=== PATIENT | male | born 1975 | race Caucasian/White ===

== ENCOUNTER 2019-01-27 10:43 | Emergency (ER) | payer BC ==
--- NOTE | 2019-01-27 11:01 | ER Document Report ---
HPI - HPI Time Seen by Provider: 01/27/19 10:53 Pain Level: 5 Context: Patient is a 43-year-old male who presents the emergency department with a chief complaint of left knee pain. He states that his symptoms started 2 days ago. Denies any injury, but states that he might have twisted his knee possibly while he was at work or when he was walking. He states that the pain is mainly in his anterior knee and radiates behind his knee on both sides. 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 He has history of multiple orthopedic problems. He states that his knees have bothered him in the past. He denies any fever, nausea, vomiting, diarrhea, or any other symptoms. - CONSTITUTIONAL Constitutional: DENIES: Fever, Chills - EENT EENT: DENIES: Sore Throat - NEURO Neurology: DENIES: Headache - CARDIOVASCULAR Cardiovascular: DENIES: Chest pain - RESPIRATORY Respiratory: DENIES: Coughing - MUSCULOSKELETAL Musculoskeletal: REPORTS: Extremity pain - Left knee - DERM Skin Color: Normal Skin Problems: None Past Medical History - Social History Smoking Status: Unknown if Ever Smoked Family History: Reviewed & Not Pertinent Vertical Provider Document - CONSTITUTIONAL Exam Limitations: No Limitations - INFECTION CONTROL TRAVEL OUTSIDE OF THE [place] IN LAST 30 DAYS: No - HEENT HEENT: Atraumatic, Normocephalic - NECK Neck: Normal Inspection - RESPIRATORY Respiratory: No Respiratory Distress - CARDIOVASCULAR Cardiovascular: Regular Rate - MUSCULOSKELETAL/EXTREMETIES Musculoskeletal/Extremeties: FROM, Tender - Left knee - NEURO Level of Consciousness: Awake, Alert, Appropriate Motor/Sensory: No Motor Deficit, No Sensory Deficit - DERM Integumentary: Warm, Dry Course - Re-evaluation Re-evalutation: 01/27/19 12:03 Patient's x-ray is negative for any acute fracture. He will be started on naproxen and he will follow-up with orthopedics due to him having chronic knee issues. I do not suspect a septic joint at this time as his knee is not red, hot, and swollen. Verbal discharge instructions were given to the patient. They verbalized understanding. They are stable for discharge. - Vital Signs Vital signs: Temp Pulse Resp BP Pulse Ox 98.9 F 110 H 18 133/77 H 96 01/27/19 10:46 01/27/19 10:46 01/27/19 10:46 01/27/19 10:46 01/27/19 10:46 Discharge - Discharge Clinical Impression: Left knee pain Qualifiers: Chronicity: unspecified Qualified Code(s): M25.562 - Pain in left knee Condition: Stable Disposition: HOME, SELF-CARE Additional Instructions: You were seen in the emergency department for left knee pain. You have been given naproxen for your pain. You may take 1 tablet twice a day as needed. Please follow-up with orthopedics on Tuesday in regards to this visit. You may also take Tylenol 1000 mg every 6 hours as needed for your pain. If you are unable to walk, develop a fever greater than 100.4 F, have worsening symptoms, or have any symptoms that are worrisome to you, please return to the emergency department. Prescriptions: Naproxen 500 mg PO BID PRN #20 tablet PRN Reason: Forms: Return to Work Referrals: LI JACQUES MD [ACTIVE STAFF] - 01/29/19
--- NOTE | 2019-01-27 11:29 | RADIOLOGY REPORT (SQ) ---
EXAM DESCRIPTION: KNEE LEFT 4 VIEW COMPLETED DATE/TIME: 01/27/2019 11:17 am REASON FOR STUDY: knee pain COMPARISON: None. NUMBER OF VIEWS: Four views. TECHNIQUE: AP, lateral, and both oblique radiographic images acquired of the left knee. LIMITATIONS: None. FINDINGS: MINERALIZATION: Normal. BONES: No acute fracture or dislocation. No worrisome bone lesions. JOINT: No effusion. SOFT TISSUES: No soft tissue swelling. No radio-opaque foreign body. OTHER: No other significant finding. IMPRESSION: NEGATIVE STUDY OF THE LEFT KNEE. NO RADIOGRAPHIC EVIDENCE OF ACUTE INJURY. TECHNICAL DOCUMENTATION: JOB ID: [id number] [employer]- All Rights Reserved Reading location - IP/workstation name: [email or web address]
[2019-01-27] MEDS ORDERED: NAPROXEN 250 MG TABLET PO ONE (12:04)
[2019-01-27] MEDS ORDERED: ACETAMINOPHEN 325 MG TABLET PO ONE (12:07)
[2019-01-27 12:16] VITALS: BP 126/84
== END 2019-01-27 12:22 | disposition home or self-care (01) ==
LOC: ER 10:43
DX: M25.562 Pain in left knee (principal)
CPT/HCPCS: 99283

== ENCOUNTER 2020-03-27 17:39 | Emergency (ER) | payer BC ==
[2020-03-27] MEDS ORDERED: NORMAL SALINE 1000 ML 1,000 ML IV ONE (18:29)
--- NOTE | 2020-03-27 18:31 | ER Document Report ---
ED Medical Screen (RME) - General Chief Complaint: High Blood Sugar Stated Complaint: HIGH BLOOD SUGAR Time Seen by Provider: 03/27/20 18:25 Mode of Arrival: Ambulatory Information source: Patient Notes: 44-year-old male presented to ED for complaint of elevated blood sugar. He states he took his blood sugar this evening before dinnertime and was 595. He states he has insulin that he uses at home he took a dose of that when he got to the emergency room his Accu-Chek was 289. He states he does have blurry vision, dry mouth, frequency with urination. He states his sugars have been in the 2 and 300s for a while now. He states he does not have a primary care doctor. TRAVEL OUTSIDE OF THE [place] IN LAST 30 DAYS: No - Related Data Allergies/Adverse Reactions: latex Allergy (Verified 01/27/19 10:45) Past Medical History Renal/ Medical History: Denies: Hx Peritoneal Dialysis Physical Exam - Vital signs Vitals: Temp Pulse Resp BP Pulse Ox 98.7 F 84 18 141/86 H 97 03/27/20 17:41 03/27/20 17:41 03/27/20 17:41 03/27/20 17:41 03/27/20 17:41 Course - Vital Signs Vital signs: Temp Pulse Resp BP Pulse Ox 98.7 F 84 18 141/86 H 97 03/27/20 18:09 03/27/20 17:41 03/27/20 17:41 03/27/20 17:41 03/27/20 17:41 - Laboratory Laboratory results interpreted by me: 03/27/20 18:16 POC Glucose 289 H
[2020-03-27 18:51] LABS: APPEARANCE,URINE CLEAR; BILIRUBIN,URINE NEGATIVE (NEGATIVE); COLOR,URINE STRAW; GLUCOSE, URINE >=500 mg/dL (NEGATIVE); KETONES,URINE NEGATIVE (NEGATIVE); LEUKOCYTE ESTERASE,URINE NEGATIVE (NEGATIVE); NITRITE,URINE NEGATIVE (NEGATIVE); PROTEIN,URINE NEGATIVE (NEGATIVE); URINE SPECIFIC GRAVITY 1.035; UROBILINOGEN,URINE NEGATIVE mg/dL (<2.0)
[2020-03-27 19:03] LABS: VENOUS BLOOD BASE EXCESS 0.6 mmol/L; VENOUS BLOOD PCO2 44.6 mmHg (35-63); VENOUS BLOOD PH 7.38 (7.30-7.42)
[2020-03-27 19:06] LABS: ABSOLUTE EOSINOPHILS # (AUTO) 0.3 10^3/uL (0.0-0.6); ABSOLUTE LYMPHOCYTES (AUTO) 1.9 10^3/uL (0.5-4.7); ABSOLUTE MONOCYTES (AUTO) 0.4 10^3/uL (0.1-1.4); ABSOLUTE NEUT (AUTO) 3.8 10^3/uL (1.7-8.2); BASOPHILS % (AUTO) 0.5 % (0-2); EOSINOPHILS % (AUTO) 4.2 % (0-6); HEMATOCRIT 41.3 % (37.9-51.0); HEMOGLOBIN 14.7 g/dL (13.5-17.0); LYMPHOCYTES % (AUTO) 30.2 % (13-45); MEAN CORPUSCULAR HEMOGLOBIN 33.3 pg (27.0-33.4); MEAN CORPUSCULAR HGB CONC 35.6 g/dL (32.0-36.0); MEAN CORPUSCULAR VOLUME 93 fl (80-97); MONOCYTES % (AUTO) 6.4 % (3-13); PLATELET COUNT 191 10^3/uL (150-450); RED BLOOD COUNT 4.43 10^6/uL (4.35-5.55); RED CELL DISTRIBUTION WIDTH 13.1 % (11.5-14.0); SEGMENTED NEUTROPHILS % (AUTO) 58.7 % (42-78); TOTAL CELLS COUNTED % (AUTO) 100 %; WHITE BLOOD COUNT 6.4 10^3/uL (4.0-10.5)
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
[2020-03-27 19:16] LABS: ALBUMIN 4.4 g/dL (3.5-5.0); ALKALINE PHOSPHATASE 156 U/L (38-126); ANION GAP 8 (5-19); ASPARTATE AMINO TRANSFERASE 24 U/L (17-59); BILIRUBIN,TOTAL 0.3 mg/dL (0.2-1.3); BLOOD UREA NITROGEN 15 mg/dL (7-20); CALCIUM 9.8 mg/dL (8.4-10.2); CARBON DIOXIDE 27 mmol/L (22-30); CHLORIDE 102 mmol/L (98-107); GLUCOSE 256 mg/dL (75-110); POTASSIUM 3.7 mmol/L (3.6-5.0); TOTAL PROTEIN 6.9 g/dL (6.3-8.2)
[2020-03-27 20:56] VITALS: BP 108/83
== END 2020-03-27 20:59 | disposition home or self-care (01) ==
LOC: ER 17:39
DX: E11.65 Type 2 diabetes mellitus with hyperglycemia (principal); Z91.11 Patient's noncompliance with dietary regimen; J45.909 Unspecified asthma, uncomplicated; Z91.040 Latex allergy status; Z87.891 Personal history of nicotine dependence
CPT/HCPCS: 99284; 96360; 36415; 82962; 85025; 80053; 81001; 82803; J7030

== ENCOUNTER 2020-11-28 14:46 | Emergency (ER) | payer SELFPAY ==
[2020-11-28] MEDS ORDERED: NORMAL SALINE 1000 ML 1,000 ML IV ONE (16:33)
--- NOTE | 2020-11-28 16:36 | ER Document Report ---
ED Medical Screen (RME) - General Stated Complaint: BLOOD SUGAR PROBLEM, FALL Time Seen by Provider: 11/28/20 16:25 Notes: Patient is a 45-year-old male presents to the emergency department with a feeling of his blood sugar being high. He states that he is supposed to be on medication for his diabetes, but does not have insurance. States that he is not checked his blood sugar in a while because his blood glucometer is broken. Exam: Alert and oriented. I have greeted and performed a rapid initial assessment of this patient. A comprehensive ED assessment and evaluation of the patient, analysis of test results and completion of medical decision making process will be conducted by an additional ED providers. TRAVEL OUTSIDE OF THE [place] IN LAST 30 DAYS: No - Related Data Allergies/Adverse Reactions: latex Allergy (Verified 01/27/19 10:45) Past Medical History Endocrine Medical History: Reports: Hx Diabetes Mellitus Type 2. Denies: Hx Diabetes Mellitus Type 1 Renal/ Medical History: Denies: Hx Peritoneal Dialysis Psychiatric Medical History: Reports: Hx Depression Past Surgical History: Reports: Hx Orthopedic Surgery Physical Exam - Vital signs Vitals: Temp Pulse Resp BP Pulse Ox 98.3 F 93 20 150/81 H 96 11/28/20 14:55 11/28/20 14:55 11/28/20 14:55 11/28/20 14:55 11/28/20 14:55 Course - Vital Signs Vital signs: Temp Pulse Resp BP Pulse Ox 98.3 F 93 20 150/81 H 96 11/28/20 14:55 11/28/20 14:55 11/28/20 14:55 11/28/20 14:55 11/28/20 14:55
[2020-11-28 17:53] LABS: ABSOLUTE EOSINOPHILS # (AUTO) 0.2 10^3/uL (0.0-0.6); ABSOLUTE LYMPHOCYTES (AUTO) 1.7 10^3/uL (0.5-4.7); ABSOLUTE MONOCYTES (AUTO) 0.3 10^3/uL (0.1-1.4); ABSOLUTE NEUT (AUTO) 5.9 10^3/uL (1.7-8.2); BASOPHILS % (AUTO) 0.2 % (0-2); EOSINOPHILS % (AUTO) 2.9 % (0-6); HEMATOCRIT 41.1 % (37.9-51.0); HEMOGLOBIN 14.3 g/dL (13.5-17.0); LYMPHOCYTES % (AUTO) 21.3 % (13-45); MEAN CORPUSCULAR HEMOGLOBIN 32.9 pg (27.0-33.4); MEAN CORPUSCULAR HGB CONC 34.9 g/dL (32.0-36.0); MEAN CORPUSCULAR VOLUME 94 fl (80-97); PLATELET COUNT 242 10^3/uL (150-450); RED BLOOD COUNT 4.35 10^6/uL (4.35-5.55); RED CELL DISTRIBUTION WIDTH 12.5 % (11.5-14.0); SEGMENTED NEUTROPHILS % (AUTO) 71.6 % (42-78); TOTAL CELLS COUNTED % (AUTO) 100 %; VENOUS BLOOD HCO3 24.8 mmol/L (20-32); VENOUS BLOOD PCO2 45.1 mmHg (35-63); VENOUS BLOOD PH 7.36 (7.30-7.42); WHITE BLOOD COUNT 8.2 10^3/uL (4.0-10.5)
[2020-11-28 17:58] LABS: APPEARANCE,URINE CLEAR; BILIRUBIN,URINE NEGATIVE (NEGATIVE); COLOR,URINE STRAW; GLUCOSE, URINE >=500 mg/dL (NEGATIVE); KETONES,URINE 20 mg/dL (NEGATIVE); PROTEIN,URINE NEGATIVE (NEGATIVE); UROBILINOGEN,URINE NEGATIVE mg/dL (<2.0)
[2020-11-28 18:07] LABS: ALBUMIN 4.6 g/dL (3.5-5.0); ALKALINE PHOSPHATASE 178 U/L (38-126); ANION GAP 11 (5-19); ASPARTATE AMINO TRANSFERASE 31 U/L (17-59); BILIRUBIN,DIRECT 0.3 mg/dL (0.0-0.4); BILIRUBIN,TOTAL 0.6 mg/dL (0.2-1.3); BLOOD UREA NITROGEN 17 mg/dL (7-20); CALCIUM 10.1 mg/dL (8.4-10.2); CARBON DIOXIDE 28 mmol/L (22-30); CHLORIDE 96 mmol/L (98-107); POTASSIUM 5.2 mmol/L (3.6-5.0); TOTAL PROTEIN 7.7 g/dL (6.3-8.2)
[2020-11-28 18:24] LABS: GLUCOSE 420 mg/dL (75-110)
--- NOTE | 2020-11-28 19:05 | ER Document Report ---
ED General - General Chief Complaint: High Blood Sugar Stated Complaint: BLOOD SUGAR PROBLEM, FALL Time Seen by Provider: 11/28/20 16:25 TRAVEL OUTSIDE OF THE [place] IN LAST 30 DAYS: No - HPI Notes: Patient is a 45-year-old male who presents emergency department for evaluation, stating he believes his blood sugars are high. He has been out of his Metformin for several weeks. He does not have insurance. He states he has felt dizzy, had frequent urination, findings are consistent with when he has had high blood sugar in the past. He admits to drinking alcohol over the last several days as well. He states he does not do that frequently. He denies any pain of any sort. - Related Data Allergies/Adverse Reactions: latex Allergy (Verified 11/28/20 18:26) Home Medications: Pt. has no meds at this time Past Medical History - General Information source: Patient - Social History Smoking Status: Never Smoker Chew tobacco use (# tins/day): No Frequency of alcohol use: Social Drug Abuse: None Family History: Reviewed & Not Pertinent Patient has homicidal ideation: No Endocrine Medical History: Reports: Hx Diabetes Mellitus Type 2. Denies: Hx Diabetes Mellitus Type 1 Renal/ Medical History: Denies: Hx Peritoneal Dialysis Psychiatric Medical History: Reports: Hx Anxiety, Hx Depression Past Surgical History: Reports: Hx Orthopedic Surgery Review of Systems - Review of Systems Constitutional: See HPI EENT: No symptoms reported Cardiovascular: No symptoms reported Respiratory: No symptoms reported Gastrointestinal: No symptoms reported Male Genitourinary: No symptoms reported Musculoskeletal: No symptoms reported Skin: No symptoms reported Neurological/Psychological: No symptoms reported Physical Exam - Vital signs Vitals: Temp 98.3 F 11/28/20 14:47 - Notes Notes: Vital signs reviewed, please refer to chart. Head is normocephalic, atraumatic. Pupils equal round, reactive to light. Neck is supple without meningismus. Heart is regular rate and rhythm. Lungs are clear to auscultation bilaterally. Abdomen is soft, nontender, normoactive bowel sounds throughout. Extremities without cyanosis, clubbing. Posterior calves are nontender. Peripheral pulses are equal. Skin is warm and dry. Patient is awake, alert, neurological exam is nonfocal. Course - Re-evaluation Re-evalutation: 11/28/20 19:03 Patient presents to the emergency department for evaluation. He had laboratory investigations as ordered through triage, as well as IV fluids. His initial blood glucose is over 420. He is neurologically intact, has no signs of HHS. He is not acidotic. The importance of dietary control, avoidance of alcohol, and taking medication was stressed to the patient. He voiced understanding. I will restart him on his Metformin. He is seeking out care at [facility] pending his application for disability. I encouraged him to follow-up with them closely. He is to return to the ED with worsening or new concerning symptoms of any sort. - Vital Signs Vital signs: Temp Pulse Resp BP Pulse Ox 98.3 F 93 20 150/81 H 96 11/28/20 14:55 11/28/20 14:55 11/28/20 14:55 11/28/20 14:55 11/28/20 14:55 - Laboratory Results Result Diagrams: 11/28/20 17:22 11/28/20 17:22 Laboratory Results Interpreted: 11/28/20 11/28/20 11/28/20 17:13 17:22 17:22 Sodium 134.5 L Potassium 5.2 H Chloride 96 L Glucose 420 H* POC Glucose 434 H* Alkaline Phosphatase 178 H Urine Glucose (UA) >=500 H Urine Ketones 20 H 11/28/20 18:47 Sodium Potassium Chloride Glucose POC Glucose 314 H Alkaline Phosphatase Urine Glucose (UA) Urine Ketones Critical Laboratory Results Reviewed: Yes Attending or Supervising Physician who Reviewed Labs: ELAINA VILLARREAL - Radiology Results Critical Radiology Results Reviewed: No Critical Results Discharge - Discharge Clinical Impression: Hyperglycemia due to type 2 diabetes mellitus Qualifiers: Diabetes mellitus intermediate card tender insulin use: without retirement use Qualified Code(s): E11.65 - Type 2 diabetes mellitus with hyperglycemia Condition: Stable Disposition: HOME, SELF-CARE Instructions: Diabetes ([facility]) Additional Instructions: Please restart your Metformin. You need to follow-up with her primary care provider as soon as possible. Avoid alcohol. Try to avoid simple carbohydrates in your diet. Return the emergency department with worsening or new concerning symptoms of any sort. Prescriptions: Metformin HCl [Glucophage 500 mg Tablet] 500 mg PO BID #60 tablet
[2020-11-28 20:02] VITALS: BP 128/77
== END 2020-11-28 20:00 | disposition home or self-care (01) ==
LOC: ER 14:46
DX: E11.65 Type 2 diabetes mellitus with hyperglycemia (principal); R42 Dizziness and giddiness; R35.0 Frequency of micturition; Z79.84 Long term (current) use of oral hypoglycemic drugs; Z91.040 Latex allergy status
CPT/HCPCS: 99284; 96360; 36415; 82962; 85025; 80053; 81001; 82803; J7030